=== PATIENT | male | born 1955 | race Caucasian/White ===

== ENCOUNTER 2018-10-20 09:11 | Emergency (ER) | payer OTHER, MEDICARE ==
[2018-10-20] MEDS ORDERED: carBAMazepine 200 MG TAB PO ONE (09:51)
--- NOTE | 2018-10-20 10:05 | EDPHY ---
H & P Time Seen by Provider: 10/20/18 09:18 HPI/ROS: HPI Right-sided jaw pain. 63-year-old male by private vehicle. This patient complains of right-sided jaw pain both upper and lower and through his mid cheek area ongoing for 3 weeks now. He is seen his dentist twice. She performed a root canal procedure and put him on antibiotics as well as high-dose ibuprofen and Flexeril. He then returned to see his dentist this last . She recommended that another root canal procedure be done. She did not feel comfortable doing this procedure however and referred him to a specialist colleague of hers. He saw this person yesterday and had a 2nd root canal procedure done. He has had no relief in his pain despite these procedures. He describes the pain as sharp and lancinating, sudden in onset and exacerbated by shaving or even light brushing of the scan against his cheek. There is no history of trauma. He also reports having multiple nerve blocks performed by his dentist with no relief. ROS: Constitutional: No fever, no chills. No weakness. Eyes: No discharge. No changes in vision. ENT: No sore throat. No nasal congestion or rhinorrhea. As above. Respiratory: No cough. No shortness of breath. Cardiac: No chest pain, no palpitations. Gastrointestinal: No abdominal pain, no vomiting, no diarrhea. Musculoskeletal: No back pain. No neck pain. No myalgias or arthralgias. Skin: No rashes. Neurological: No headache. No focal weakness or altered sensation. Past medical history: Left knee surgery. Social history: Nonsmoker. Here by himself. No alcohol. Physical Exam: General Appearance: Alert, no distress. This patient is responding to questions appropriately and in full sentences. This patient appears well- hydrated and well-nourished. Eyes: Pupils equal and round no pallor or injection. No lid edema, erythema or injection. ENT, Mouth: Mucous membranes are moist. The pharyngeal tissues are unremarkable. No edema or swelling. No asymmetry suggestive of abscess. No erythema or exudates. His right lower 2nd premolar and 1st and 2nd molars have been replaced. There is no pain on apical compression of these teeth. There is no gingival swelling or swelling of the buccal mucosa or other evidence of infectious process. His right upper 1st and 2nd molars have been replaced. No significant soft tissue findings or pain on apical compression of these teeth. No cervical, submental, submandibular lymphadenopathy. No elevation of the tongue. Neurological: Motor sensory function is grossly intact. Cranial nerves are normal. Gait is normal. Skin: Warm and dry, no rashes. Musculoskeletal: Neck is supple and nontender. No pain on flexion of the neck. Extremities are symmetrical. All joints range without pain or impingement. Psychiatric: No agitation. No depression. Database: EKG: Imaging: Procedures: Emergency department course: Triage vital signs reviewed. He is moderately hypertensive. Vital signs are otherwise normal. He is afebrile. This patient's presentation and history are consistent with trigeminal neuralgia. Plan will be to treat him with carbamazepine, starting him a 200 mg twice daily. We do not have this medication in the emergency department. I will prescribe him this medication and he will fill the prescription immediately upon leaving the emergency department. He has been instructed follow up with his primary care physician on Monday or Monday of this week for further management and discussion of other treatment options. Return to emergency department precautions have been reviewed with him. All of his questions were answered. He was discharged from the emergency department in good condition. Differential Diagnosis: The differential diagnosis on this patient includes but is not limited to trigeminal neuralgia, facial neuropathic pain syndrome. Apical abscess, dry socket, other acute dental emergent issue, osteomyelitis, retropharyngeal abscess, peritonsillar abscess unlikely. This represents a partial list of diagnoses considered. These considerations are based on history, physical exam , past history, reassessment and diagnostic testing. Smoking Status: Never smoked Constitutional: Initial Vital Signs Temperature (C) 37.2 C 10/20/18 09:24 Heart Rate 76 10/20/18 09:24 Respiratory Rate 16 10/20/18 09:24 Blood Pressure 158/100 H 10/20/18 09:24 O2 Sat (%) 95 10/20/18 09:24 O2 Delivery Mode Room Air Allergies/Adverse Reactions: No Known Allergies Allergy (Unverified 10/20/18 09:22) Home Medications: Medication Instructions Recorded AMOXICILLIN 10/20/18 Flexeril 10 MG (*) 10/20/18 Ibu 800 10/20/18 carBAMazepine [Carbamazepine] 200 mg PO BID #30 tablet 10/20/18 Departure - Departure Disposition: Home, Routine, Self-Care Clinical Impression: Trigeminal neuralgia of right side of face Condition: Good Instructions: Trigeminal Neuralgia (ED) Additional Instructions: Read and follow provided instructions. Follow-up with your primary care physician on Monday or Monday of this week for re-evaluation and further management. Take medication as prescribed. Carbamazepine dosin mg twice daily. The dose can be increased gradually in increments of 200 mg daily as tolerated until sufficient pain relief is attained. The typical total maintenance dose is 600 to 800 mg daily, given in two divided doses for tablets and extended-release capsules. No more than 1200 mg per day. Return to the emergency department for worsening symptoms or other serious concerns. Referrals: Helena Harrison DO [Primary Care Provider] - As per Instructions Prescriptions: carBAMazepine [Carbamazepine] 200 mg PO BID #30 tablet
[2018-10-20 10:44] VITALS: BP 142/86
== END 2018-10-20 10:42 | disposition home or self-care (01) ==
LOC: CED 09:11
DX: G50.0 Trigeminal neuralgia (principal)
CPT/HCPCS: 99283-ER

== ENCOUNTER → 2018-12-11 | Outpatient (CLI) | payer OTHER, MEDICARE ==
[~2018-12-11] MED LIST: GADOBUTROL 10 ML VIAL IVP ONE
== END ==
LOC: FIMAGING 13:22
PROVIDERS: ATTEND Family Medicine
DX: G50.0 Trigeminal neuralgia (principal)
CPT/HCPCS: 70553; A9585